=== PATIENT | female | born 1940 | race Caucasian/White ===

== ENCOUNTER 2020-03-15 02:12 | Outpatient (CLI) | payer MEDICARE, BC, SELFPAY ==
[2020-03-15 18:17] LABS: SARS-CoV-2 RNA PCR Negative
== END 2020-03-15 02:13 | disposition home or self-care (01) ==
LOC: ANHCOVIDDT 02:12
PROVIDERS: PCP Internal Medicine; Visit Provider Internal Medicine Gastroenterology
DX: Z01.812 Encounter for preprocedural laboratory examination (principal); Z20.828 Contact with and (suspected) exposure to other viral communicable diseases
CPT/HCPCS: 87635; C9803; U0003

== ENCOUNTER 2020-03-17 04:18 | Day surgery (SDC) | payer MEDICARE, BC, SELFPAY ==
[2020-03-10 13:56] VITALS: BMI 24.5
--- NOTE | 2020-03-17 07:19 | PM.HPGS ---
History of Present Illness History of Present Illness Consent: Risks, benefits, and alternatives have been discussed and questions answered. Patient agrees to proceed with procedure. Chief complaint: Neoplasm Screening Narrative: Maria Isabel Bryant is a 79 year old W female undergoing colonoscopy secondary to a personal history of colon cancer approximately 19 years ago had a personal history of colonic polyps with several polyps removed 3 years ago on colonoscopy. [facility] Past Medical History Medical History (Updated 03/17/20 @ 07:23 by Dani Vasquez MD) Diabetes mellitus Dyslipidemia History of cardiac arrhythmia Hypertension Surgical History Surgical History (Updated 03/17/20 @ 07:24 by Dani Vasquez MD) H/O partial resection of colon S/P placement of cardiac pacemaker Status post hernia repair Family History Family History (Updated 01/06/16 @ 23:19 by DOCTOR UNKNOWN) Father Family history of diabetes mellitus in first degree relative Family history of lung cancer Family history of coronary artery disease Sibling Family history of diabetes mellitus in first degree relative Family history of malignant neoplasm of ovary, Onset Age: 56 Other Family history of malignant neoplasm Social History Social History Smoking packs per day: 1 Smoking cigarettes per day: 20.0 Years smoked: 20 Smoking pack-years: 20.00 Smoking status: Former smoker Second hand tobacco smoke exposure: Yes Smoking end date: 03/10/82 Alcohol intake: never Living arrangements: with family Spiritual care concerns: No Meds Home Medications and Allergies Home Medications Medication Instructions Recorded Confirmed Type aspirin [Aspirin Low Dose] 81 mg PO DAILY 03/10/20 03/10/20 History atorvastatin 30 mg PO DAILY 03/10/20 03/10/20 History carvedilol 50 mg PO BID 03/10/20 03/10/20 History empagliflozin [Jardiance] 10 mg PO DAILY 03/10/20 03/10/20 History famotidine 20 mg PO HS 03/10/20 03/10/20 History furosemide 40 mg PO DAILY 03/10/20 03/10/20 History glimepiride 4 mg PO .BREAKFAST 03/10/20 03/10/20 History insulin glargine [Basaglar KwikPen 30 unit SUBCUT DAILY 03/10/20 03/10/20 History U-100 Insulin] metformin 1,000 mg PO BID 03/10/20 03/10/20 History nitroglycerin 0.4 mg SUBLINGUAL DAILY PRN 10/01/20 10/01/20 History quinapril 20 mg PO HS 03/10/20 03/10/20 History quinapril 40 mg PO DAILY 03/10/20 03/10/20 History spironolactone 25 mg PO DAILY 03/10/20 03/10/20 History Allergies Allergy/AdvReac Type Severity Reaction Status Date / Time atenolol Allergy Unknown HAIR LOSS Verified 03/17/20 07:16 digoxin Allergy Unknown VISION Verified 03/17/20 07:16 PROBLEMS nifedipine Allergy Unknown Other Verified 03/17/20 07:16 penicillin G Allergy Unknown Other Verified 03/17/20 07:16 Penicillins Allergy Unknown HIVES Verified 03/17/20 07:16 simvastatin Allergy Unknown Muscle Pain Verified 03/17/20 07:16 CLONIDINE HCL Allergy Unknown EXTREME Uncoded 03/17/20 07:16 DROWSINESS ROSUVASTATIN CALCIUM Allergy Unknown MUSCLE PAIN Uncoded 03/17/20 07:16 CLOPIDOGREL BISULFATE AdvReac Unknown EXCESSIVE Uncoded 03/17/20 07:16 BLEEDING Exam Const: Orientation/consciousness: patient oriented x3 Resp: Auscultation: clear to auscultation bilaterally Cardio: Rate: regular rate Rhythm: regular rhythm Heart sounds: no murmurs GI: GI Palp: Yes Soft to palpation, No Tenderness to palpation present (GI), Yes No hepatosplenomegaly present and No Palpable mass present Auscultation: normal bowel sounds Neuro: General: patient oriented x3 and no focal motor deficits Extrem: General: no pedal edema Assessment and Plan Additional Plan colonoscopy secondary to personal history of colon cancer and colon polyps
[2020-03-17 07:22] VITALS: BP 172/52; PULSE 65; RESP 16; TEMP 36.1; O2SAT 100; BMI 24.3
[2020-03-17] MEDS: LACTATED RINGERS 1,000 ML 150 ML IV CONT (07:35)
[2020-03-17 07:38] LABS: Glucose Point of Care 183 (65-105)
--- NOTE | 2020-03-17 08:13 | WPDANESEPPF ---
Anes - Initial Pre Proc Eval Procedure: Operation Date: 03/17/20 08:30 Proposed Procedures p Screening Colonoscopy - Dani Vasquez MD Date/Time: 03/17/20 08:13 Surgeon: Dani Vasquez MD Pre Op Diagnosis: Neoplasm Screening Patient Data Age: 79 Gender: F Height: 5 ft 4 in Weight: 64.3 kg Last Vital Signs Temp 96.9 F L 03/17/20 07:22 Pulse 65 03/17/20 07:22 Resp 16 03/17/20 07:22 BP 172/52 H 03/17/20 07:22 Pulse Ox 100 03/17/20 07:22 Allergies Allergy/AdvReac Type Severity Reaction Status Date / Time atenolol Allergy Unknown HAIR LOSS Verified 03/17/20 07:16 digoxin Allergy Unknown VISION Verified 03/17/20 07:16 PROBLEMS nifedipine Allergy Unknown Other Verified 03/17/20 07:16 penicillin G Allergy Unknown Other Verified 03/17/20 07:16 Penicillins Allergy Unknown HIVES Verified 03/17/20 07:16 simvastatin Allergy Unknown Muscle Pain Verified 03/17/20 07:16 CLONIDINE HCL Allergy Unknown EXTREME Uncoded 03/17/20 07:16 DROWSINESS ROSUVASTATIN CALCIUM Allergy Unknown MUSCLE PAIN Uncoded 03/17/20 07:16 CLOPIDOGREL BISULFATE AdvReac Unknown EXCESSIVE Uncoded 03/17/20 07:16 BLEEDING Home Medications Medication Instructions Recorded Confirmed Type aspirin [Aspirin Low Dose] 81 mg PO DAILY 03/10/20 03/10/20 History atorvastatin 30 mg PO DAILY 03/10/20 03/10/20 History carvedilol 50 mg PO BID 03/10/20 03/10/20 History empagliflozin [Jardiance] 10 mg PO DAILY 03/10/20 03/10/20 History famotidine 20 mg PO HS 03/10/20 03/10/20 History furosemide 40 mg PO DAILY 03/10/20 03/10/20 History glimepiride 4 mg PO .BREAKFAST 03/10/20 03/10/20 History insulin glargine [Basaglar KwikPen 30 unit SUBCUT DAILY 03/10/20 03/10/20 History U-100 Insulin] metformin 1,000 mg PO BID 03/10/20 03/10/20 History nitroglycerin 0.4 mg SUBLINGUAL DAILY PRN 03/10/20 03/10/20 History quinapril 20 mg PO HS 03/10/20 03/10/20 History quinapril 40 mg PO DAILY 03/10/20 03/10/20 History spironolactone 25 mg PO DAILY 03/10/20 03/10/20 History Laboratory Tests 03/17/20 07:34 POC Capillary Glucose 183 mg/dl H mg/dl (65-105) Patient hx anesthesia problems: none Family hx anesthesia problems: none PMFSH Past Medical History Medical History (Updated 03/17/20 @ 08:12 by Francis Hobson MD) Congestive heart failure (CHF) Diabetes mellitus Dyslipidemia History of cardiac arrhythmia Hypertension Surgical History Surgical History (Updated 03/17/20 @ 08:12 by Francis Hobson MD) AICD (automatic cardioverter/defibrillator) present H/O partial resection of colon S/P placement of cardiac pacemaker Status post hernia repair Family History Family History (Updated 01/06/16 @ 23:19 by DOCTOR UNKNOWN) Father Family history of diabetes mellitus in first degree relative Family history of lung cancer Family history of coronary artery disease Sibling Family history of diabetes mellitus in first degree relative Family history of malignant neoplasm of ovary, Onset Age: 56 Other Family history of malignant neoplasm Social History Social History Smoking packs per day: 1 Smoking cigarettes per day: 20.0 Years smoked: 20 Smoking pack-years: 20.00 Smoking status: Former smoker Second hand tobacco smoke exposure: Yes Smoking end date: 03/10/82 Alcohol intake: never Living arrangements: with family Spiritual care concerns: No Anes - Eval Final PreProcedure Day of Procedure 03/17/20 08:13 Patient weight: normal Heart: regular rate and rhythm Lungs: clear to auscultation Airway: Mallampati scale class II Neurological: alert and oriented Last oral intake: >/= 8 hours ASA classification: III Emergent: no Anesthetic plan: proceed Anesthesia type and monitoring: general GIVS and standard monitoring Informed Consent: The patient's anesthetic plan and its attendant risks and benefits were discussed with the patient/family/POA. Questions were solicited and
[2020-03-17 09:25] VITALS: BP 115/39; PULSE 63; RESP 18; O2SAT 98
[2020-03-17 09:35] VITALS: BP 107/41; PULSE 60; RESP 16; O2SAT 97
[2020-03-17 09:45] VITALS: BP 142/40; PULSE 64; RESP 20; O2SAT 99
[2020-03-17 09:51] LABS: Glucose Point of Care 160 (65-105)
== END 2020-03-17 10:05 | disposition home or self-care (01) ==
PROVIDERS: PCP Internal Medicine; Visit Provider Internal Medicine Gastroenterology
PROC: 0DJD8ZZ Inspection of Lower Intestinal Tract, Via Natural or Artificial Opening Endoscopic (ICD-10-PCS; CPT 45378; principal; 2020-03-17 08:30)
DX: Z12.11 Encounter for screening for malignant neoplasm of colon (principal); Z85.038 Personal history of other malignant neoplasm of large intestine; K64.4 Residual hemorrhoidal skin tags; E11.9 Type 2 diabetes mellitus without complications; E78.5 Hyperlipidemia, unspecified; I10 Essential (primary) hypertension; Z90.49 Acquired absence of other specified parts of digestive tract; Z95.0 Presence of cardiac pacemaker; Z80.1 Family history of malignant neoplasm of trachea, bronchus and lung; Z80.41 Family history of malignant neoplasm of ovary; Z87.891 Personal history of nicotine dependence; I50.9 Heart failure, unspecified; Z98.0 Intestinal bypass and anastomosis status
CPT/HCPCS: G0105; J2704; J7120

== ENCOUNTER → 2020-04-29 12:16 | Outpatient (CLI) | payer MEDICARE, BC, SELFPAY ==
--- NOTE | ~2020-04-29 | MM_ITS ---
EXAMINATION: MM screening [facility] BI w wendy HISTORY: Screening mammogram TECHNIQUE: Craniocaudal and mediolateral oblique 3-D tomosynthesis images were obtained and synthetic 2-D images were generated. CAD analysis was submitted and interpreted. COMPARISON: 10/27/2018, 10/24/2017, 09/27/2016, 09/20/2015 BREAST PARENCHYMAL COMPOSITION: There are scattered areas of fibroglandular density. FINDINGS: There is no evidence of suspicious mass, calcification, or architectural distortion to sugg est malignancy in either breast. There has been no suspicious interval change. IMPRESSION: 1. No mammographic evidence of malignancy. 2. Recommend routine screening mammography in one year. BI-RADS Category 1: Negative Reviewed, dictated and finalized at location A. MIC TILER
--- NOTE | ~2020-04-29 | DEXA_ITS ---
Bone Density Report Name: Maria Isabel Bryant Age: 79 Sex: Female Ethnicity: White Date of : 1940 Indication: osteopenia; monitoring treatment; rheumatoid arthritis; postmenopausal Referring Provider: Shyla, Migdalia Cummings Study: Bone densitometry was performed. Exam Date: April 29, 2020 Accession number: [id number] Bone Density: Region BMD T-score Z-score Classification AP Spine (L1, L2, L3) 1.150 1.2 3.7 Normal Femoral Neck (Left) 0.612 -2.1 0.1 Osteopenia Total Hip (Left) 0.784 -1.3 0.7 Osteopenia Femoral Neck (Right) 0.649 -1.8 0.4 Osteopenia Total Hip (Right) 0.765 -1.5 0.5 Osteopenia Total Hip Mean 0.775 -1.4 0.6 Osteopenia World Health Organization criteria for BMD impression classify patients as: Normal (T-score at or above -1.0), Osteopenia (T-score between -1.0 and -2.5), or Osteoporosis (T-score at or below -2.5). 10-year Fracture Risk: FRAX not reported because: Treated for osteoporosis Previous Exams: Region Exam Age BMD T-score BMD Change BMD Change Date g/cm2 vs Baseline vs Previous AP Spine(L1, L2, L3) 04/29/2020 79 1.150 1.2 0.166* 0.047* 10/24/2017 77 1.103 0.8 0.120* 0.128* 09/20/2015 75 0.976 -0.4 -0.008 -0.079* 09/08/2013 73 1.054 0.3 0.071* 0.071* 08/21/2011 70 0.984 -0.3 Total Hip(Left) 04/29/2020 79 0.784 -1.3 0.038* -0.007 10/24/2017 77 0.791 -1.2 0.045* 0.056* 09/20/2015 75 0.735 -1.7 -0.011 0.000 09/08/2013 73 0.735 -1.7 -0.011 -0.011 08/21/2011 70 0.746 -1.6 Total Hip(Right) 04/29/2020 79 0.765 -1.5 0.000 -0.015 10/24/2017 77 0.780 -1.3 0.015 0.013 09/20/2015 75 0.767 -1.4 0.002 -0.030* 09/08/2013 73 0.797 -1.2 0.032* 0.032* 08/21/2011 70 0.765 -1.5 *Denotes significance at 95% confidence level, LSC for AP Spine = 0.022 g/cm2, LSC for Total Hip = 0.027 g/cm2 Clinical Information Provided by Patient: Has rheumatoid arthritis Is being treated for osteoporosis Has used the following medications: Fosamax (i.e. alendronate), Calcium, MTV, ended Alendronate 02/2020 Patient maximum height was 64.5 Menopause Age: 45 No regular weight bearing exercise Does not regularly consume dairy products Onset of menses at age 15 Number of children 1
== END ==
PROVIDERS: PCP Internal Medicine; Visit Provider Nurse Practitioner Obstetrics & Gynecology
DX: Z12.31 Encounter for screening mammogram for malignant neoplasm of breast (principal); Z78.0 Asymptomatic menopausal state; M85.852 Other specified disorders of bone density and structure, left thigh; M85.851 Other specified disorders of bone density and structure, right thigh
CPT/HCPCS: 77063; 77067; 77080

== ENCOUNTER → 2021-05-03 10:20 | Outpatient (CLI) | payer MEDICARE, BC, SELFPAY ==
--- NOTE | ~2021-05-03 | MM_ITS ---
EXAMINATION: MM screening [facility] BI w wendy HISTORY: Screening mammogram TECHNIQUE: Craniocaudal and mediolateral oblique 3-D tomosynthesis images were obtained and synthetic 2-D images were generated. CAD analysis was submitted and interpreted. COMPARISON: 04/29/2020, 10/27/2018, 10/24/2017 BREAST PARENCHYMAL COMPOSITION: There are scattered areas of fibroglandular density. FINDINGS: There is no evidence of suspicious mass, calcification, or architectural distortion to sugg est malignancy in either breast. There has been no suspicious interval change. IMPRESSION: 1. No mammographic evidence of malignancy. 2. Recommend routine screening mammography in one year. BI-RADS Category 1: Negative Reviewed, dictated and finalized at location A. LRY MAKER
== END ==
PROVIDERS: PCP Internal Medicine; Visit Provider Obstetrics & Gynecology
DX: Z12.31 Encounter for screening mammogram for malignant neoplasm of breast (principal)
CPT/HCPCS: 77063; 77067

== ENCOUNTER → 2022-05-28 15:35 | Outpatient (CLI) | payer MEDICARE, BC, SELFPAY ==
--- NOTE | ~2022-05-28 | MM_ITS ---
EXAMINATION: MM screening [facility] BI w wendy HISTORY: Screening TECHNIQUE: Craniocaudal and mediolateral oblique 3-D tomosynthesis images were obtained and synthetic 2-D images were generated. CAD analysis was submitted and interpreted. COMPARISON: Comparison to multiple prior studies sequentially, with oldest reviewed study dated 09/27. BREAST PARENCHYMAL COMPOSITION: There are scattered areas of fibroglandular density. FINDINGS: There is no evidence of suspicious mass, calcification, or architectural distortion to sugg est malignancy in either breast. There has been no suspicious interval change. IMPRESSION: 1. No mammographic evidence of malignancy. 2. Recommend routine screening mammography in one year. BI-RADS Category 1: Negative Reviewed, dictated and finalized at location A. ING AND TRIM INSTALLER
--- NOTE | ~2022-05-28 | DEXA_ITS ---
Bone Density Report Name: MARISA BEASLEY Age: 81 Sex: Female Ethnicity: White Date of : 1940 Indication: osteopenia; rheumatoid arthritis; postmenopausal Referring Provider: Shyla, Migdalia Cummings Study: Bone densitometry was performed. Exam Date: May 28, 2022 Accession number: [id number] Bone Density: Region BMD T-score Z-score Classification AP Spine (L2, L3) 1.139 0.7 3.5 Normal Femoral Neck (Left) 0.571 -2.5 -0.2 Osteoporosis Total Hip (Left) 0.766 -1.4 0.7 Osteopenia Femoral Neck (Right) 0.618 -2.1 0.2 Osteopenia Total Hip (Right) 0.783 -1.3 0.8 Osteopenia Total Hip Mean 0.775 -1.4 0.8 Osteopenia World Health Organization criteria for BMD impression classify patients as: Normal (T-score at or above -1.0), Osteopenia (T-score between -1.0 and -2.5), or Osteoporosis (T-score at or below -2.5). 10-year Fracture Risk: FRAX not reported because: Some T-score for Spine Total or Hip Total or Femoral Neck at or below -2.5 Previous Exams: Region Exam Age BMD T-score BMD Change BMD Change Date g/cm2 vs Baseline vs Previous AP Spine(L2, L3) 05/28/2022 81 1.139 0.7 0.126* -0.007 04/29/2020 79 1.146 0.8 0.133* 0.041* 10/24/2017 77 1.105 0.4 0.092* 0.109* 09/20/2015 75 0.995 -0.6 -0.017 -0.062* 09/08/2013 73 1.058 0.0 0.045* 0.045* 08/21/2011 70 1.013 -0.4 Total Hip(Left) 05/28/2022 81 0.766 -1.4 0.020 -0.018 04/29/2020 79 0.784 -1.3 0.038* -0.007 10/24/2017 77 0.791 -1.2 0.045* 0.056* 09/20/2015 75 0.735 -1.7 -0.011 0.000 09/08/2013 73 0.735 -1.7 -0.011 -0.011 08/21/2011 70 0.746 -1.6 Total Hip(Right) 05/28/2022 81 0.783 -1.3 0.018 0.018 04/29/2020 79 0.765 -1.5 0.000 -0.015 10/24/2017 77 0.780 -1.3 0.015 0.013 09/20/2015 75 0.767 -1.4 0.002 -0.030* 09/08/2013 73 0.797 -1.2 0.032* 0.032* 08/21/2011 70 0.765 -1.5 *Denotes significance at 95% confidence level, LSC for AP Spine = 0.022 g/cm2, LSC for Total Hip = 0.027 g/cm2 Clinical Information Provided by Patient: Has rheumatoid arthritis Has used the following medications: Vitamin D, Calcium, MTV Patient maximum height was 64.5 Menopause Age: 45 No regular weight bearing exercise Drinks c
== END ==
PROVIDERS: PCP Internal Medicine; Visit Provider Nurse Practitioner Obstetrics & Gynecology
DX: Z12.31 Encounter for screening mammogram for malignant neoplasm of breast (principal); M81.0 Age-related osteoporosis without current pathological fracture; M85.852 Other specified disorders of bone density and structure, left thigh; M85.851 Other specified disorders of bone density and structure, right thigh
CPT/HCPCS: 77063; 77067; 77080